=== PATIENT | female | born 1950 | race African-American/Black ===

== ENCOUNTER 2021-04-10 20:54 | Emergency (ER) | payer OTHER ==
[~2021-04-10] VITALS: Ht 165.1 cm; Wt 72.6 kg
[2021-04-10 20:54] VITALS: BP 177/84
[2021-04-10] MEDS ORDERED: CLIN150C8 PO (23:54)
[2021-04-11] MEDS ORDERED: CLINDAMYCIN HCL 150 MG CAP ONE ×2 (00:34→00:36)
[2021-04-11] MEDS ORDERED: CLINDAMYCIN HCL 150 MG CAP PO ONE (00:45)
== END 2021-04-11 00:18 | disposition home or self-care (01) ==
LOC: ER 21:01
DX: L03.113 Cellulitis of right upper limb (principal)